=== PATIENT | female | born 1995 | race Asian ===

== ENCOUNTER → 2018-07-09 | Emergency (ER) | payer SELFPAY ==
[~2018-07-09] VITALS: Ht 154.9 cm; Wt 52.2 kg
[~2018-07-09] MED LIST: HYOSCYAMINE 0.125 MG (LEVSIN) TAB PO ONE; LACTATED RINGERS 1,000 ML IV ONE; ONDANSETRON 4 MG/2 ML (SDV) Z0FRAN IVP ONE; RX-HYOSCYAMINE 0.125 MG SL (LEVSIN) PPK#6 SL STA; RX-ONDANSETRON 4 MG ODT (ZOFRAN) PPK #4 SL STA
[2018-07-10 00:26] LABS: BASOPHILS # (AUTO) 0.1 10^3/uL (0.0-0.1); BASOPHILS % (AUTO) 1 % (0-10); EOSINOPHILS # (AUTO) 0.2 10^3/uL (0.0-0.3); EOSINOPHILS % (AUTO) 2 % (0-10); HEMATOCRIT 41 % (35-52); HEMOGLOBIN 13.8 G/DL (11.5-16.0); LYMPHOCYTES # (AUTO) 3.5 X 10^3 (1.0-4.0); LYMPHOCYTES % (AUTO) 36 % (12-44); MEAN CORPUSCULAR HEMOGLOBIN 27 PG (25-34); MEAN CORPUSCULAR HGB CONC 34 G/DL (32-36); MEAN CORPUSCULAR VOLUME 78 FL (80-99); MONOCYTES # (AUTO) 0.7 X 10^3 (0.0-1.0); MONOCYTES % (AUTO) 7 % (0-12); NEUTROPHILS # (AUTO) 5.3 X 10^3 (1.8-7.8); NEUTROPHILS % (AUTO) 55 % (42-75); PLATELET COUNT 284 10^3/uL (130-400); RED CELL DISTRIBUTION WIDTH 12.4 % (10.0-14.5); WHITE BLOOD COUNT 9.8 10^3/uL (4.3-11.0)
[2018-07-10 00:27] LABS: BILIRUBIN,URINE NEGATIVE (NEGATIVE); CLARITY,URINE CLEAR; COLOR,URINE YELLOW; GLUCOSE, URINE (UA) NEGATIVE (NEGATIVE); KETONES,URINE NEGATIVE (NEGATIVE); LEUKOCYTE ESTERASE ,URINE NEGATIVE (NEGATIVE); NITRITE,URINE NEGATIVE (NEGATIVE); PH,URINE 6 (5-9); PROTEIN,URINE NEGATIVE (NEGATIVE); UROBILINOGEN,URINE NORMAL (NORMAL)
[2018-07-10 00:37] LABS: RBC,URINE 0-2 /HPF
[2018-07-10 00:38] LABS: BACTERIA,URINE TRACE /HPF
[2018-07-10 00:41] LABS: ALANINE AMINOTRANSFERASE 16 U/L (0-55); ALBUMIN 4.9 GM/DL (3.2-4.5); ALKALINE PHOSPHATASE 62 U/L (40-136); BILIRUBIN,TOTAL 0.3 MG/DL (0.1-1.0); BUN/CREATININE RATIO 11; CALCIUM 9.7 MG/DL (8.5-10.1); CARBON DIOXIDE 20 MMOL/L (21-32); CHLORIDE 107 MMOL/L (98-107); GFR ESTIMATED > 60; GLUCOSE 93 MG/DL (70-105); MAGNESIUM 2.4 MG/DL (1.8-2.4); POTASSIUM 3.6 MMOL/L (3.6-5.0); SODIUM 140 MMOL/L (135-145)
--- NOTE | 2018-07-10 00:52 | ED GI ---
General Chief Complaint: Abdominal/GI Problems Stated Complaint: VOMITING Nursing Triage Note: PT STATES SHE DEVELOPED DIARRHEA THIS AM, ROUGHLY 2-3 HOURS AGO BEGAN EXPERIENCING NAUSEA AND VOMITING. Sepsis Screen: No Definite Risk Source of Information: Patient Exam Limitations: No Limitations History of Present Illness Date Seen by Provider: Jul 10, 2018 Time Seen by Provider: 00:01 Initial Comments This 23-year-old young lady presents to the emergency room with complaints of diarrhea that started in the morning and vomiting that started a few hours ago. She also has abdominal cramping and some mild abdominal tenderness. She has not taken any medications yet. She denies fever. She denies and her LMP was June 11. She denies any significant health problems. She is a student at [employer]. Allergies and Home Medications Allergies Coded Allergies: No Known Drug Allergies (Unverified , 07/10/18) Patient Home Medication List Home Medication List Reviewed: Yes Review of Systems Review of Systems Constitutional: no symptoms reported EENTM: No Symptoms Reported Respiratory: No Symptoms Reported Cardiovascular: No Symptoms Reported Gastrointestinal: See HPI Genitourinary: No Symptoms Reported Musculoskeletal: no symptoms reported Skin: no symptoms reported Psychiatric/Neurological: No Symptoms Reported Endocrine: No Symptoms Reported Hematologic/Lymphatic: No Symptoms Reported Past Nuwdpzy-Aildat-Mqvddr Hx Past Med/Social Hx: Reviewed and Corrections made Patient Social History Recent Foreign Travel: No Contact w/Someone Who Travel: No Recent Infectious Disease Expo: No Past Medical History Surgeries: No Respiratory: No Cardiac: No Neurological: No : No Last Menstrual Period: Jun 11, 2018 Reproductive Disorders: No Gastrointestinal: No Musculoskeletal: No Endocrine: No HEENT: No Cancer: No Psychosocial: No Physical Exam Vital Signs Vital Signs - First Documented 07/10/18 00:01 Temp 97.2 Pulse 85 Resp 20 B/P (MAP) 122/84 (97) Pulse Ox 99 O2 Delivery Room Air Capillary Refill : Less Than 3 Seconds Height/Weight/BMI Height: 5'1.00" Weight: 115lbs. oz. 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, no motor/sensory deficits, alert, normal mood/affect, oriented x 3 Skin: normal color, warm/dry Progress/Results/Core Measures Results/Orders Lab Results Laboratory Tests Test 07/10/18 00:12 07/10/18 00:18 Range/Units White Blood Count 9.8 4.3-11.0 10^3/uL Red Blood Count 5.19 4.35-5.85 10^6/uL Hemoglobin 13.8 11.5-16.0 G/DL Hematocrit 41 35-52 % Mean Corpuscular Volume 78 L 80-99 FL Mean Corpuscular Hemoglobin 27 25-34 PG Mean Corpuscular Hemoglobin Concent 34 32-36 G/DL Red Cell Distribution Width 12.4 10.0-14.5 % Platelet Count 284 130-400 10^3/uL Mean Platelet Volume 10.0 7.4-10.4 FL Neutrophils (%) (Auto) 55 42-75 % Lymphocytes (%) (Auto) 36 12-44 % Monocytes (%) (Auto) 7 0-12 % Eosinophils (%) (Auto) 2 0-10 % Basophils (%) (Auto) 1 0-10 % Neutrophils # (Auto) 5.3 1.8-7.8 X 10^3 Lymphocytes # (Auto) 3.5 1.0-4.0 X 10^3 Monocytes # (Auto) 0.7 0.0-1.0 X 10^3 Eosinophils # (Auto) 0.2 0.0-0.3 10^3/uL Basophils # (Auto) 0.1 0.0-0.1 10^3/uL Sodium Level 140 135-145 MMOL/L Potassium Level 3.6 3.6-5.0 MMOL/L Chloride Level 107 98-107 MMOL/L Carbon Dioxide Level 20 L 21-32 MMOL/L Anion Gap 13 5-14 MMOL/L Blood Urea Nitrogen 10 7-18 MG/DL Creatinine 0.90 0.60-1.30 MG/DL Estimat Glomerular Filtration Rate > 60 BUN/Creatinine Ratio 11 Glucose Level 93 70-105 MG/DL Calcium Level 9.7 8.5-10.1 MG/DL Corrected Calcium 8.5-10.1 MG/DL Magnesium Level 2.4 1.8-2.4 MG/DL Total Bilirubin 0.3 0.1-1.0 MG/DL Aspartate Amino Transf (AST/SGOT) 16 5-34 U/L Alanine Aminotransferase (ALT/SGPT) 16 0-55 U/L Alkaline Phosphatase 62 40-136 U/L Total Protein 8.0 6.4-8.2 GM/DL Albumin 4.9 H 3.2-4.5 GM/DL Serum Test, Qualitative NEGATIVE NEGATIVE Urine Color YELLOW Urine Clarity CLEAR Urine pH 6 5-9 Urine Specific [place] 1.015 L 1.016-1.022 Urine Protein NEGATIVE NEGATIVE Urine Glucose (UA) NEGATIVE NEGATIVE Urine Ketones NEGATIVE NEGATIVE Urine Nitrite NEGATIVE NEGATIVE Urine Bilirubin NEGATIVE NEGATIVE Urine Urobilinogen NORMAL NORMAL MG/DL Urine Leukocyte Esterase NEGATIVE NEGATIVE Urine RBC (Auto) 1+ H NEGATIVE Urine RBC 0-2 /HPF Urine WBC NONE /HPF Urine Squamous Epithelial Cells 10-25 H /HPF Urine Crystals NONE /LPF Urine Bacteria TRACE /HPF Urine Casts NONE /LPF Urine Mucus NEGATIVE /LPF Urine Culture Indicated NO My Orders Orders - RADHA CERON MD Saline Lock/Iv-Start (07/10/18 00:08) Lactated Ringers (Lr 1000 Ml Iv Solution (07/10/18 00:08) Ondansetron Injection (Zofran Injectio (07/10/18 00:15) Hyoscyamine Sl Tablet (Levsin Sl Tablet) (07/10/18 00:15) Cbc With Automated Diff (07/10/18 00:08) Comprehensive Metabolic Panel (07/10/18 00:08) Hcg,Qualitative Serum (07/10/18 00:08) Magnesium (07/10/18 00:08) Ua Culture If Indicated (07/10/18 00:08) Rx-Ondansetron Po (Rx-Zofran Po) (07/10/18 00:48) Rx-Hyoscyamine Tab (Rx-Levsin Sl) (07/10/18 00:48) Medications Given in ED Vital Signs/I&O 07/10/18 07/10/18 00:01 01:06 Temp 97.2 97.2 Pulse 85 85 Resp 20 20 B/P (MAP) 122/84 (97) 111/79 (90) Pulse Ox 99 99 O2 Delivery Room Air Blood Pressure Mean: 97 Progress Progress Note : Progress Note Labs were relatively unremarkable. Patient was hydrated with 1 L of IV fluid. Symptoms were treated with Zofran and Levsin with good results. Take him packets of both were dispensed. Departure Impression Primary Impression: Nausea vomiting and diarrhea Additional Impression: Epigastric pain Disposition: HOME, SELF-CARE Condition: Improved Departure-Patient Inst. Decision time for Depature: 00:49 Referrals: NO,LOCAL PHYSICIAN (PCP/Family) Primary Care Physician Patient Instructions: Acute Abdomen (Belly Pain), Adult (DC), Nausea and Vomiting, Adult Add. Discharge Instructions: Start with a clear liquid diet. Gradually advance your diet with small quantities of bland food as tolerated. Dissolve Zofran (ondansetron) under your tongue every 4 hours as needed for nausea and vomiting. Dissolve Levsin (hyoscyamine) under your tongue every 4 hours as needed for cramping and diarrhea. Avoid milk products until your diarrhea has been resolved for at least 48 hours. Return to the emergency room or [facility] if symptoms are worsening despite treatment. All discharge instructions reviewed with patient and/or family. Voiced understanding. Work/School Note: School/Childcare Release Date Seen in the Emergency Department: Jul 10, 2018 Return to School: Jul 11, 2018 RADHA CERON MD Jul 10, 2018 00:52
[2018-07-10 01:06] VITALS: BP 111/79
== END | disposition home or self-care (01) ==
LOC: ER 22:41
DX: R11.2 Nausea with vomiting, unspecified (principal); R19.7 Diarrhea, unspecified; R10.13 Epigastric pain